=== PATIENT | female | born 1975 | race African-American/Black ===

== ENCOUNTER → 2025-04-03 | Day surgery (SDC) | payer BC | LOC: CSHULT 11:58 | PROVIDERS: ATTEND Obstetrics & Gynecology | PROC: 07B83ZX Excision of Right Internal Mammary Lymphatic, Percutaneous Approach, Diagnostic (ICD-10-PCS; principal; 2025-04-03) | DX: R59.0 Localized enlarged lymph nodes (principal) | CPT/HCPCS: 19083; 88305; 88341; 88342; A4648 ==

== ENCOUNTER 2025-04-07 13:00 | Inpatient (IN) | payer BC ==
[2025-04-07 13:55] LABS: Glucose, Urine (Dipstick) Normal (Negative); Leukocyte Negative (Negative); Protein, Urine (Dipstick) 15 mg/dl (Neg-Trace); Specific Gravity, Urine 1.015 (1.005-1.030)
[2025-04-07 13:57] LABS: Hematocrit 32.0 % (34.9-44.5); Hemoglobin 10.4 g/dL (12.0-15.5); Mean Corpuscular Hemoglobin 24.4 pg (27.0-33.0); Mean Corpuscular Volume 74.9 fL (81.6-98.3); Platelet Count 270 10x3/uL (150-450); Red Blood Cell (RBC) Count 4.27 10x6/uL (3.90-5.03); White Blood Cell (WBC) Count 6.83 10x3/uL (3.5-10.5)
[2025-04-07 14:11] LABS: BHCG - Serum Negative (NEGATIVE)
[2025-04-07 14:12] LABS: Pregs Control Background? CLEAR/WHITE (CLR/WHITE); Pregs Control Bar Appear? YES (CONTROL BAR)
[2025-04-07 14:27] VITALS: BMI 36.1
[2025-04-13] MEDS ORDERED: Bupivacaine HCl 0.5%/Epinephrine 1:200,000/PF 30 ml Vial ONE (06:20)
[2025-04-13] MEDS ORDERED: Rocuronium Bromide 10 MG/ML (10ML VIAL) ONE (06:59)
[2025-04-13] MEDS ORDERED: PROPOFOL 20 ML ONE (06:59)
[2025-04-13] MEDS ORDERED: Lidocaine 1% PF 5 ML VIAL ONE (06:59)
[2025-04-13] MEDS ORDERED: PHENYLEPHRINE-NS 100 MCG/ML 10 ML SYRINGE ONE (07:53)
[2025-04-13] MEDS ORDERED: Ondansetron PF 4 MG/2 ML Vial ONE (08:29)
[2025-04-13] MEDS ORDERED: Ketorolac Tromethamine 30 MG (1 mL) VIAL ONE (08:37)
[2025-04-13] MEDS ORDERED: SUGAMMADEX SODIUM 200 MG/2 ML VIAL ONE (08:37)
[2025-04-13] MEDS ORDERED: Ondansetron PF 4 MG/2 ML Vial IVP PRN (09:03)
[2025-04-13] MEDS ORDERED: Bisacodyl 10 MG SUPP PR PRN (09:03)
[2025-04-13] MEDS ORDERED: Simethicone Chewable 80 MG TAB PO PRN (09:03)
[2025-04-13] MEDS ORDERED: HYDROmorphone 0.5 MG/0.5 ML SYR SLOW IVP PRN (09:08)
[2025-04-13] MEDS ORDERED: HYDROmorphone 0.5 MG/0.5 ML SYRINGE ONE ×2 (09:19→10:11)
[2025-04-13] MEDS ORDERED: Ketorolac Tromethamine 30 MG (1 mL) VIAL IVP SCH (12:00)
[2025-04-13] MEDS: GENTAMICIN SULFATE IVPB SCH (12:18)
[2025-04-13] MEDS: SODIUM CHLORIDE 0.9% IVPB SCH (12:18)
[2025-04-13] MEDS: Ketorolac Tromethamine 30 MG (1 mL) VIAL IVP SCH (13:51)
[2025-04-13] MEDS: HYDROcodone/Acetaminophen 5/325 mg Tablet PO PRN (17:50)
[2025-04-14 05:36] LABS: Hematocrit 26.3 % (34.9-44.5); Hemoglobin 8.3 g/dL (12.0-15.5); Mean Corpuscular Hemoglobin 24.8 pg (27.0-33.0); Mean Corpuscular Volume 78.5 fL (81.6-98.3); Platelet Count 254 10x3/uL (150-450); Red Blood Cell (RBC) Count 3.35 10x6/uL (3.90-5.03); White Blood Cell (WBC) Count 10.93 10x3/uL (3.5-10.5)
[2025-04-15 08:39] VITALS: BP 150/67
[2025-04-15 08:51] VITALS: TEMP 98.2
[2025-04-15 13:48] VITALS: BMI 36.1
== END 2025-04-15 15:30 | disposition home or self-care (01) | DRG 743 ==
LOC: CSHTELE 04-13 05:47 → CSHPED 04-13 12:08
PROVIDERS: ADMIT Obstetrics & Gynecology; ATTEND Obstetrics & Gynecology
PROC: 0UT70ZZ Resection of Bilateral Fallopian Tubes, Open Approach (ICD-10-PCS; principal; 2025-04-13)
PROC: 0UT90ZZ Resection of Uterus, Open Approach (ICD-10-PCS; 2025-04-13)
PROC: 0DNU0ZZ Release Omentum, Open Approach (ICD-10-PCS; 2025-04-13)
DX: N85.2 Hypertrophy of uterus (principal); D25.1 Intramural leiomyoma of uterus; D64.9 Anemia, unspecified; Z88.2 Allergy status to sulfonamides; Z88.0 Allergy status to penicillin; Z79.899 Other long term (current) drug therapy
CPT/HCPCS: 81003; 84703; 85027; 86850; 86900; 86901; 88307; 97139; C1889; J1100; J1171; J1885; J2270; J2405; J2704; J3010; J3490; J7120

== ENCOUNTER 2025-04-07 13:06 | Outpatient (CLI) | payer BC | END 2025-04-07 13:07 | disposition home or self-care (01) | LOC: CSHLAB 13:06 | PROVIDERS: ATTEND Obstetrics & Gynecology | DX: Z01.812 Encounter for preprocedural laboratory examination (principal); N85.2 Hypertrophy of uterus; D25.9 Leiomyoma of uterus, unspecified; D64.9 Anemia, unspecified; Z53.9 Procedure and treatment not carried out, unspecified reason | CPT/HCPCS: 81003; 84703; 85027; 86850; 86900; 86901 ==

== ENCOUNTER 2025-04-17 09:12 | Outpatient (CLI) | payer BC | END 2025-04-17 09:13 | disposition home or self-care (01) | LOC: CSHWCC 09:12 | PROVIDERS: ATTEND Nurse Practitioner Family | DX: T81.31XD Disruption of external operation (surgical) wound, not elsewhere classified, subsequent encounter (principal) | CPT/HCPCS: 99213; G0463 ==

== ENCOUNTER 2025-04-21 14:13 | Outpatient (CLI) | payer BC | END 2025-04-21 14:14 | disposition home or self-care (01) | LOC: CSHWCC 14:13 | PROVIDERS: ATTEND Nurse Practitioner Family | DX: T81.31XD Disruption of external operation (surgical) wound, not elsewhere classified, subsequent encounter (principal) | CPT/HCPCS: 97605; 99213; G0463 ==

== ENCOUNTER 2025-04-28 11:33 | Outpatient (CLI) | payer BC | END 2025-04-28 11:34 | disposition home or self-care (01) | LOC: CSHWCC 11:33 | PROVIDERS: ATTEND Nurse Practitioner Family | DX: T81.31XD Disruption of external operation (surgical) wound, not elsewhere classified, subsequent encounter (principal) | CPT/HCPCS: 99213; G0463 ==